=== PATIENT | female | born 1965 | race Caucasian/White ===

== ENCOUNTER 2024-02-20 16:51 | Emergency (ER) | payer OTHER, SELFPAY ==
[2024-02-20 17:08] VITALS: BP 186/98; PULSE 91; RESP 16; TEMP 38.1; O2SAT 99
--- NOTE | 2024-02-20 17:30 | ED.GENADULT ---
HPI - General Adult General Chief complaint: Upper Respiratory Infection Stated complaint: left eye swollen,pain along left side of nose Time Seen by Provider: 02/20/24 17:31 Source: patient, RN notes reviewed and old records reviewed Mode of arrival: ambulatory Limitations: no limitations History of Present Illness HPI narrative: 58-year-old female presents to the [facility] with pain swelling and redness along the left side of nose and under eye. Patient is extremely tender. Reports last week she had a sinus infection used [id number] products which she thought got better. A recently arrived from [place]. Also reports fevers Patient reports she did not take her lisinopril today Onset (ago): day(s) (1) Treatments prior to arrival: NSAID and other (Tylenol) Related Data Home Medications Medication Instructions Recorded Confirmed alprazolam 0.5 mg tablet 0.5 mg PO DAILY 02/20/24 02/20/24 escitalopram oxalate 20 mg tablet 20 mg PO DAILY 02/20/24 02/20/24 (Lexapro) levothyroxine 100 mcg tablet 100 mcg PO DAILY 02/20/24 02/20/24 lisinopril 10 mg tablet 20 mg PO DAILY 02/20/24 02/20/24 Allergies Allergy/AdvReac Type Severity Reaction Status Date / Time butorphanol [From Stadol] Allergy Rash Verified 02/20/24 17:33 Penicillins Allergy Rash Verified 02/20/24 17:33 Review of Systems Review of Systems: All systems reviewed & are unremarkable except as noted in HPI and below Constitutional: Constitutional: Reports no additional constitutional complaints Eyes: Eyes: Reports no additional eye complaints ENT: Reports as per HPI, Reports sinus pain and Reports sinus pressure Cardiovascular: Cardiovascular: Reports no additional cardiovascular complaints, Denies chest pain and Denies dyspnea Respiratory: Respiratory: Reports no additional respiratory complaints, Denies chest congestion, Denies cough and Denies dyspnea Gastrointestinal: Gastrointestinal: Reports no additional gastrointestinal complaints, Denies abdominal pain, Denies nausea and Denies vomiting Musculoskeletal: Musculoskeletal: Reports no additional musculoskeletal complaints Integumentary/Breasts: Skin/Breast: Reports system reviewed and no additional complaints, except as docu Neurologic: Reports system reviewed and no additional complaints, except as documented Psychiatric: Psychiatric: Reports no additional psychiatric complaints Allergic/Immunologic: Allergic/Immunologic: Reports no additional allergic/immunologic complaints PMFSH Past Medical History Medical History (Updated 02/20/24 @ 18:07 by Ashwini Alan APRN) Anxiety History of high blood pressure Thyroid disease Comments At the time of my signature, I reviewed and agree with the nursing past medical, surgical, social, and family history. There is no relevant family history pertinent to the patient complaint. Exam Const: General: cooperative, healthy appearing, comfortable, no acute distress, well developed, alert and well nourished Nutritional Appearance: well nourished Orientation/consciousness: patient oriented x3 Limitations: no limitations HENMT: Head: normal to inspection Ears: hearing grossly normal bilaterally, external ears normal, TM's normal bilaterally, EAC's normal, mastoids normal and no periauricular adenopathy Face/Nose/Sinus: Normal external nose present, Normal nares present, No nasal discharge present, Abnormal mucous membranes and turbinates present boggy on the left and erythematous on the left, normal facial exam, face symmetric, sinus tenderness (Left) and Facial tenderness on exam of face and sinuses (Left) Face and sinus: normal facial exam, face symmetric, no abrasions, no ecchymosis, erythema on the left and sinus tenderness maxillary Mouth: Yes Normal oral and palatal mucosa present, Yes lip normal and Yes tongue normal Throat: posterior oropharynx normal, uvula midline and no uvular edema Eyes: General: appearance normal, both eyes and all relate
== END 2024-02-20 17:50 | disposition home or self-care (01) ==
PROVIDERS: Emergency Provider Nurse Practitioner
DX: J01.40 Acute pansinusitis, unspecified (principal); F41.9 Anxiety disorder, unspecified; I10 Essential (primary) hypertension; E03.9 Hypothyroidism, unspecified; F32.9 Major depressive disorder, single episode, unspecified
CPT/HCPCS: 99203; G0463

== ENCOUNTER 2024-02-22 11:43 | Inpatient (IN) | payer OTHER, SELFPAY ==
--- NOTE | ~2024-02-22 | CT_ITS ---
EXAMINATION: CT facial bones w con DATE: 02/22/2024 12:11 INDICATION: Left facial pain and swelling. TECHNIQUE: Computed tomography (CT) of the facial bones and maxillofacial region was performed with 7 5 mL Omnipaque 350 intravenous contrast. Automated exposure control and iterative reconstruction tech [employer] were employed. The dose-length product was 292.32 mGy-cm. COMPARISON: None. FINDINGS: There is left periorbital soft tissue swelling. The orbits are normal. There are no patholo gically enlarged lymph nodes. There is mucosal thickening in the paranasal sinuses. There is moderate cervical spondylosis. IMPRESSION: 1. Left periorbital soft tissue swelling. Normal orbits. Reviewed, dictated and finalized at location A.
[2024-02-22 11:45] VITALS: BP 155/75; PULSE 88; RESP 16; TEMP 36.5; O2SAT 100
[2024-02-22 12:05] LABS: Basophils Percent Auto 0.4 % (0.2-1.2); Eosinophils Absolute Auto 0.1 K/mm3 (0-0.3); Eosinophils Percent Auto 1.1 % (0-4.4); Hematocrit 39.3 % (37.0-47.0); Immature Granulocyte Absolute 0.04 K/mm3 (0.00-0.031); Immature Granulocyte Percent A 0.4 % (0-0.5); Lymphocytes Absolute Auto 1.71 K/mm3 (0.9-3.2); Lymphocytes Percent Auto 18.6 % (18.3-44.2); Mean Corpuscular HGB Conc 33.1 g/dl (32-36); Mean Corpuscular Hemoglobin 31.5 pg (26-34); Mean Corpuscular Volume 95.2 fl (80-100); Mean Platelet Volume 9.6 fl (7.4-10.4); Monocytes Percent Auto 10.9 % (2.6-8.5); Neutrophils Absolute Auto 6.3 K/mm3 (1.3-6.7); Neutrophils Percent Auto 68.6 % (45.5-73.1); Platelet Count Result 333 k/mm3 (150-375); Red Blood Count 4.13 M/mm3 (4.2-5.4); Red Cell Distribution Width 12.8 % (11.5-14.5); White Blood Count 9.2 K/mm3 (4.5-10.0)
[2024-02-22 12:16] LABS: Lactic Acid Reflex 0.9 mmol/L (0.7-2.0)
[2024-02-22 12:21] LABS: Alanine Aminotransferase 67 U/L (6-35); Albumin Level 4.2 g/dL (3.5-5.1); Alkaline Phosphatase 114 U/L (38-126); Anion Gap 6 mmol/L (4-12); Aspartate Amino Transferase 81 U/L (14-36); Bilirubin,Total 1.3 mg/dL (0.2-1.3); Blood Urea Nitrogen 15 mg/dL (7-17); Calcium 9.2 mg/dL (8.4-10.2); Carbon Dioxide 26 mmol/L (22-30); Chloride 110 mmol/L (98-107); Estimated CRCL calculation 66 ml/min; Estimated Glomerular Filt Rate > 60; Glucose 91 mg/dL (65-110); Potassium 3.8 mmol/L (3.4-5.0); Sodium 142 mmol/L (137-145)
[2024-02-22 13:23] LABS: Erythrocyte Sedimentation Rate 75 mm/hr (0-20)
--- NOTE | 2024-02-22 14:35 | ED.EYEPROB ---
HPI - Eye Problem General Chief complaint: Eye Problems <HANS Kern Last Filed: 02/22/24 19:26> Stated complaint: facial problems <HANS Kern Last Filed: 02/22/24 19:26> Time Seen by Provider: 02/22/24 14:35 <HANS Kern Last Filed: 02/22/24 19:26> Focused HPI: Patient is a 58 y/o female who presents to the ED with c/o L eye pain and swelling. Patient reports she woke up Monday night with some pain in her medial L eye. Thought she slept on her glasses wrong. She has since developed increasing pressure/pain in her L periorbital region and behind her left eye. Was seen at an on Monday, was febrile at that time, started on Doxycycline. Denies improvement since. She then woke up this morning with her left eye swollen shut which prompted her to come to the ED. Denies vision changes, vision loss, blurry vision. Does report some pain with eye movement. GENERAL: Well-appearing, well-nourished, and in no acute distress. HEAD: Normocephalic, atraumatic. EYES: L eye conjunctiva is clear. Mild serous drainage. PERRL/EOMI. Some discomfort with L eye movement. Diffuse swelling to left eye lids, worse in upper eyelid. Erythema, swelling, mild induration in L periorbital region extending to lower maxillary region. CHEST: Clear to auscultation. ?No respiratory distress. HEART: Regular rate and rhythm.? NEURO: ?Alert and oriented x3. Patient screened in triage and initial orders placed.? ?Additional care and disposition to be based upon?diagnostic testing and treatment. <HANS Kern Last Filed: 02/22/24 19:26> Source: patient <HANS Kern Filed: 02/22/24 19:26> Mode of arrival: ambulatory <HANS Kern Filed: 02/22/24 19:26> Limitations: no limitations <HANS Kern Filed: 02/22/24 19:26> History of Present Illness HPI Narrative: As above with the following addition: patient states the pain started on the lateral left aspect of the bridge nose on Monday. Denies pain with ocular movements on my exam. <Jenny Reed MD - Last Filed: 02/24/24 10:14> Related Data Home medications: Home Medications Medication Instructions Recorded Confirmed escitalopram oxalate 20 mg tablet 20 mg PO DAILY 02/20/24 02/22/24 (Lexapro) levothyroxine 100 mcg tablet 100 mcg PO DAILY 02/20/24 02/22/24 lisinopril 10 mg tablet 10 mg PO DAILY 02/20/24 02/22/24 <HANS Kern Last Filed: 02/22/24 19:26> Allergies/adverse reactions: Allergies Allergy/AdvReac Type Severity Reaction Status Date / Time butorphanol [From Stadol] Allergy Rash Verified 02/22/24 18:50 Penicillins Allergy Rash Verified 02/22/24 18:50 <Priti Walls PA-C - Last Filed: 02/22/24 19:26> [facility] Past Medical History Medical History: Medical History Anxiety Depression HTN (hypertension) Hypothyroidism Meningitis Post-operative nausea and vomiting TIA (transient ischemic attack) <HANS Kern Last Filed: 02/22/24 19:26> Surgical History Surgical History: Surgical History History of History of cholecystectomy History of hysterectomy History of umbilical hernia repair <HANS Kern Last Filed: 02/22/24 19:26> Social History Social History: Social History Smoking status: Never smoker Second hand tobacco smoke exposure: Yes Alcohol intake: never Substance use: never Do You Feel Safe in your Home?: Yes Lack of Transportation: No Lack of Food: Never True Current Housing: I Have Housing Concerned About Future Housing: No Difficulty Paying Gas/Electric Bills: No Difficulty Paying for Meds: No 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
[2024-02-22] MEDS: traMADol HCL (*CRX) 25 MG TABLET PO (15:27)
[2024-02-22] MEDS: FLUORESCEIN SOD 1 MG/STRIP EACH EYE (15:27)
[2024-02-22] MEDS: cefTRIAXone 2 GM/NS 100 ML 2 GM/100 ML BAG IVPB (15:29)
[2024-02-22 16:00] VITALS: BP 149/94; PULSE 78; RESP 16; TEMP 36.8; O2SAT 100
[2024-02-22] MEDS: VANCOMYCIN 1,250 MG/NS 250 ML 1,250 MG/250 ML BAG 166.67 MG IVPB (16:17)
--- NOTE | 2024-02-22 16:42 | PC.NURSE ---
vanco stopped due to pt complaining sudden onset of severe itching on head, Redness noted to scalp and posterior neck. ERP notified
[2024-02-22] MEDS: diphenhydrAMINE HCl INJ 50 MG/ML VIAL (16:54)
[2024-02-22 17:00] VITALS: BP 158/94; PULSE 76; RESP 16; TEMP 36.8; O2SAT 100
[2024-02-22] MEDS: ACETAMINOPHEN 500 MG TABLET 1000 MG PO (17:51)
[2024-02-22] MEDS: predniSONE 20 MG TABLET 40 MG PO (17:51)
[2024-02-22 17:58] VITALS: BP 142/80; PULSE 76; RESP 16; TEMP 36.8; O2SAT 100
--- NOTE | 2024-02-22 18:16 | ADMGEN ---
This patient, Marlin Cowan, was admitted to Medical Room 246-. Patient/family oriented to hospital policies and general routines including ID bracelet, bed and alarms, visiting hours, pain management, procedures, bathroom and other care routines, personal items, smoking policy, room service/diet, and visiting hours. Information on how to activate the Rapid Response Team has been discussed. Patient/Family are encouraged to report perceived risks to care and to ask questions if they do not understand what they are told or what they should do.
[2024-02-22 18:18] VITALS: BMI 27.2
[2024-02-22] MEDS: KETOROLAC 30 MG/ML VIAL (*BKC) IV PUSH (19:16)
[2024-02-22 19:28] VITALS: BP 128/80; PULSE 79; RESP 17; TEMP 36.6; O2SAT 99; BMI 28.5
[2024-02-22 19:29] VITALS: BP 128/80; PULSE 79; RESP 17; TEMP 36.6; O2SAT 99
--- NOTE | 2024-02-22 19:46 | PM.IMHP ---
H&P: HPI History of Present Illness Date/Time: 02/22/24 23:00 Chief Complaint: L Eye Pain and Swelling Narrative: 58 y/o F presents here with left eye pain and swelling with PMH of anxiety/depression, TIA, HTN, and hypothyroidism. Patient presents here from home for further evaluation of left eye pain and swelling. She reports waking up Monday (02/18) night due to pain to the left upper part of her nasal bridge just lateral to her eye that she describes as achy. Initially attributed discomfort to sleeping with her glasses on. Due to worsening pain/pressure to her nasal bridge, she went to a local urgent care on Monday (02/19). Febrile (100.6F) upon presentation there and started on Doxycycline 100 mg BID x10 days. Patient reports little improvement with abx initiation. Seeking further treatment/evaluation today due to waking this morning with her eyelid swelling shut and pain was radiating to cheek, above eye brow and causing pressure to general area. No pain with ocular movement. Denying diplopia, blurred vision, vision loss, or any other changes in vision. Has continued to have subjective fevers, not able to take temp (currently traveling here). No open wounds, acne blemish, or trauma to that region prior to onset of symptomns. No prior hx of skin infections. Had 2 episodes of acute sinusitis in Nov and then had an abscessed tooth November (took 1 month to resolve, feel improved). Initial VS at presentation: 97.7? F, HR 88, RR 16, 155/75, and 100% on RA. ED workup showed: No leukocytosis, no anemia, ESR 75, no significant electrolyte derangements, creatinine 0.8 a and GFR >60, lactic 0.9, modest elevation in LFTs, CRP 6.0. CT face showed left periorbital soft tissue swelling and normal orbits. Review of Systems Review of Systems: All systems reviewed & are unremarkable except as noted in HPI and below PMFSH Past Medical History Medical History Anxiety Depression HTN (hypertension) Hypothyroidism Meningitis Post-operative nausea and vomiting TIA (transient ischemic attack) Surgical History Surgical History History of History of cholecystectomy History of hysterectomy History of umbilical hernia repair Social History Social History Smoking status: Never smoker Second hand tobacco smoke exposure: Yes Alcohol intake: never Substance use: never Do You Feel Safe in your Home?: Yes Lack of Transportation: No Lack of Food: Never True Current Housing: I Have Housing Concerned About Future Housing: No Difficulty Paying Gas/Electric Bills: No Difficulty Paying for Meds: No 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ation: High School Diploma/GED Difficulty w/ Childcare or Family Care: No Spiritual care concerns: No Meds Home Medications and Allergies Home Medications Medication Instructions Recorded Confirmed Type doxycycline monohydrate 100 mg 100 mg PO BID #20 tabs 02/20/24 02/22/24 Rx tablet escitalopram oxalate 20 mg tablet 20 mg PO DAILY 02/20/24 02/22/24 History (Lexapro) levothyroxine 100 mcg tablet 100 mcg PO DAILY 02/20/24 02/22/24 History lisinopril 10 mg tablet 10 mg PO DAILY 02/20/24 02/22/24 History Allergies Allergy/AdvReac Type Severity Reaction Status Date / Time butorphanol [From Stadol] Allergy Rash Verified 02/22/24 18:50 Penicillins Allergy Rash Verified 02/22/24 18:50 Vital Signs Vital Signs - 24 hr 02/22/24 11:45 02/22/24 16:00 02/22/24 17:00 Temperature 97.7 F 98.3 F 98.3 F Pulse Rate 88 78 76 Respiratory Rate 16 16 16 Blood Pressure 155/75 H 149/94 H 158/94 H Pulse Oximetry 100 100 100 02/22/24 17:58 02/22/24 19:28 02/22/24 19:29 Temperature 98.3 F 97.9 F 97.9 F Pulse Rate 76 79 79 Respiratory Rate 16 17 17 Blood Pressure 142/80 H 128/80 128/80 Pulse Oximetry 100 99 99
[2024-02-22] MEDS: ACETAMINOPHEN 325 MG TABLET 650 MG PO (22:09)
[2024-02-22] MEDS: diphenhydrAMINE HCl INJ 50 MG/ML VIAL 25 MG IV PUSH (22:09)
[2024-02-22] MEDS: MELATONIN 5 MG TABLET PO (23:46)
[2024-02-23 05:00] LABS: Basophils Percent Auto 0.3 % (0.2-1.2); Hematocrit 39.1 % (37.0-47.0); Hemoglobin 12.6 g/dL (12.0-15.0); Immature Granulocyte Absolute 0.05 K/mm3 (0.00-0.031); Immature Granulocyte Percent A 0.5 % (0-0.5); Lymphocytes Absolute Auto 1.23 K/mm3 (0.9-3.2); Lymphocytes Percent Auto 12.9 % (18.3-44.2); Mean Corpuscular HGB Conc 32.2 g/dl (32-36); Mean Corpuscular Hemoglobin 30.9 pg (26-34); Mean Corpuscular Volume 95.8 fl (80-100); Monocytes Absolute Auto 0.7 K/mm3 (0.1-0.6); Monocytes Percent Auto 6.9 % (2.6-8.5); Neutrophils Absolute Auto 7.6 K/mm3 (1.3-6.7); Neutrophils Percent Auto 79.4 % (45.5-73.1); Platelet Count Result 351 k/mm3 (150-375); Red Blood Count 4.08 M/mm3 (4.2-5.4); Red Cell Distribution Width 12.7 % (11.5-14.5); White Blood Count 9.6 K/mm3 (4.5-10.0)
[2024-02-23 05:14] LABS: Alanine Aminotransferase 72 U/L (6-35); Albumin Level 3.9 g/dL (3.5-5.1); Alkaline Phosphatase 117 U/L (38-126); Anion Gap 6 mmol/L (4-12); Aspartate Amino Transferase 74 U/L (14-36); Bilirubin,Total 0.8 mg/dL (0.2-1.3); Blood Urea Nitrogen 16 mg/dL (7-17); CRP 4.9 mg/dL (<1.0); Calcium 9.4 mg/dL (8.4-10.2); Carbon Dioxide 25 mmol/L (22-30); Chloride 110 mmol/L (98-107); Estimated CRCL calculation 77 ml/min; Estimated Glomerular Filt Rate > 60; Glucose 152 mg/dL (65-110); Potassium 4.5 mmol/L (3.4-5.0); Sodium 141 mmol/L (137-145)
[2024-02-23] MEDS: LEVOTHYROXINE SODIUM 100 MCG TABLET PO (05:15)
[2024-02-23 05:31] VITALS: BP 117/52; PULSE 73; RESP 17; TEMP 36.7; O2SAT 98
[2024-02-23] MEDS: ESCITALOPRAM OXALATE 10 MG TABLET 20 MG PO (09:04)
[2024-02-23] MEDS: diphenhydrAMINE HCl CAP 25 MG CAPSULE PO (09:05)
[2024-02-23] MEDS: lisinopriL 10 MG TABLET PO (09:05)
[2024-02-23] MEDS: VANCOMYCIN 1,250 MG/NS 250 ML 1,250 MG/250 ML BAG 83.33 MG IVPB (09:06)
[2024-02-23] MEDS: ACETAMINOPHEN 325 MG TABLET 650 MG PO ×2 (12:43→21:55)
--- NOTE | 2024-02-23 13:29 | PM.IMPN ---
Progress Note: A&P Assessment and Plan (1) Periorbital cellulitis: Qualifiers: Laterality: left Qualified Code(s): L03.213 - Periorbital cellulitis Code(s): L03.213 - Periorbital cellulitis Status: Acute Assessment and Plan: - CT Face left periorbital soft tissue swelling. Normal orbits. - WBC 9.2, ESR 75, CRP 6 - Started on Vanc and Ceftriaxone on 02/21, however patient had allergic reaction (sudden onset of severe itching to her head and erythema to the scalp and posterior neck). Ceftriaxone given 1 hr prior to reaction and Vanc infusing during reaction. Spoke with pharmacy, plan for premedication prior to vancomycin infusion and slow infusion. Choice of abx treatment dependent on reaction. Benadryl 25 mg IVP PRN ordered. - pain control PRN - 02/22 swelling, pain and redness improved. (2) Transaminitis: Code(s): R74.01 - Elevation of levels of liver transaminase levels Status: Acute Assessment and Plan: - AST 81, ALT 67 - suspect elevation due to hypothyroidism - monitor (3) HTN (hypertension): Code(s): I10 - Essential (primary) hypertension Status: Acute Assessment and Plan: - chronic, currently 128/80 - continue home medications: Lisinopril 10 mg daily - monitor Subjective Date/time seen: 02/23/24 13:29 Interval history: Patient states that her pain and swelling are improved today. She is feeling much better. Going to continue to treat with IV antibiotic therapy. She denies body aches, chills, tear duct drainage, pain with blinking, visual changes rash, itching, chest pain or shortness of breath. Exam Narrative: GENERAL: Comfortable, no acute distress HENMT: moist mucous membranes, left periorbital cellulitis, no tear duct drainage or conjunctivitis noted EYES: EOM intact b/l NECK: no lymphadenopathy RESPIRATORY: clear to auscultation, no increased respiratory effort CARDIO: Regular rate and rhythm GI: soft, nontender, bowel sounds present EXTREMITIES: no rashes, no edema, no redness or tenderness NEURO: PROM intact, answers questions appropriately, A&O x4 Objective Data Vital Signs Vital Signs: Vital Signs - 24 hr 02/22/24 16:00 02/22/24 17:00 02/22/24 17:58 Temperature 98.3 F 98.3 F 98.3 F Pulse Rate 78 76 76 Respiratory Rate 16 16 16 Blood Pressure 149/94 H 158/94 H 142/80 H Pulse Oximetry 100 100 100 Oxygen Delivery 02/22/24 19:28 02/22/24 19:29 02/22/24 20:00 Temperature 97.9 F 97.9 F Pulse Rate 79 79 Respiratory Rate 17 17 Blood Pressure 128/80 128/80 Pulse Oximetry 99 99 Oxygen Delivery Room Air 02/23/24 05:31 02/23/24 09:05 Temperature 98.0 F Pulse Rate 73 Respiratory Rate 17 Blood Pressure 117/52 L Pulse Oximetry 98 Oxygen Delivery Room Air Intake/Output Intake/Output: Intake & Output 02/20/24 02/21/24 02/22/24 02/23/24 23:59 23:59 23:59 23:59 Intake Total 100 50 Balance 100 50 Meds/Results Medications: Active Medications Generic Name Dose Route Start Last Admin Trade Name Freq PRN Reason Stop Dose Admin Acetaminophen 650 mg 02/22/24 17:34 02/23/24 12:43 Acetaminophen 325 Mg Tablet PO 650 mg Q4H PRN Administration Mild Pain (1-3) or Fever Diphenhydramine HCl 25 mg 02/23/24 09:00 02/23/24 09:05 Diphenhydramine Hcl Cap 25 Mg Capsule PO 25 mg Q18H GRIFFIN Administration Diphenhydramine HCl 25 mg 02/22/24 23:37 Diphenhydramine Hcl Inj 50 Mg/Ml Vial IV PUSH Q4H PRN Allergic Reaction Escitalopram Oxalate 20 mg 02/23/24 09:00 02/23/24 09:04 Escitalopram Oxalate 10 Mg Tablet PO 20 mg DAILY GRIFFIN Administration Vancomycin HCl 1,250 mg in 250 mls @ 83.333 mls/hr 02/23/24 10:00 02/23/24 09:06 Vancomycin 1,250 Mg/Ns 250 Ml IVPB 83.33 mls/hr Q18H GRIFFIN Administration Ceftriaxone Sodium 2 gm in 100 mls @ 200 mls/hr 02/23/24 16:00 Rocephin 2 Gm/Ns 100 Ml IVPB Q24H GRIFFIN
[2024-02-23 15:00] VITALS: BP 142/65; PULSE 80; RESP 18; TEMP 36.9; O2SAT 99
[2024-02-23] MEDS: cefTRIAXone 2 GM/NS 100 ML 2 GM/100 ML BAG IVPB (16:07)
[2024-02-23 21:43] VITALS: BP 156/89; PULSE 66; RESP 18; TEMP 36.1; O2SAT 100
[2024-02-23] MEDS: MELATONIN 5 MG TABLET PO (21:50)
[2024-02-24] MEDS: diphenhydrAMINE HCl CAP 25 MG CAPSULE PO (02:48)
[2024-02-24] MEDS: VANCOMYCIN 1,250 MG/NS 250 ML 1,250 MG/250 ML BAG 83.33 MG IVPB (03:42)
[2024-02-24 04:39] VITALS: BP 138/72; PULSE 67; RESP 18; TEMP 36.7; O2SAT 98
[2024-02-24 05:40] LABS: Hematocrit 36.4 % (37.0-47.0); Hemoglobin 11.8 g/dL (12.0-15.0); Mean Corpuscular HGB Conc 32.4 g/dl (32-36); Mean Corpuscular Hemoglobin 30.8 pg (26-34); Platelet Count Result 336 k/mm3 (150-375); Red Blood Count 3.83 M/mm3 (4.2-5.4); Red Cell Distribution Width 13.1 % (11.5-14.5); White Blood Count 8.9 K/mm3 (4.5-10.0)
[2024-02-24 05:49] LABS: Anion Gap 5 mmol/L (4-12); Blood Urea Nitrogen 14 mg/dL (7-17); Calcium 8.7 mg/dL (8.4-10.2); Carbon Dioxide 26 mmol/L (22-30); Chloride 110 mmol/L (98-107); Estimated CRCL calculation 77 ml/min; Estimated Glomerular Filt Rate > 60; Glucose 93 mg/dL (65-110); Potassium 3.7 mmol/L (3.4-5.0); Sodium 141 mmol/L (137-145)
[2024-02-24] MEDS: LEVOTHYROXINE SODIUM 100 MCG TABLET PO (06:28)
[2024-02-24] MEDS: ESCITALOPRAM OXALATE 10 MG TABLET 20 MG PO (08:11)
[2024-02-24] MEDS: lisinopriL 10 MG TABLET PO (08:11)
--- NOTE | 2024-02-24 09:42 | PC.NURSE ---
Per rosy Smith to give IV Rocephin at 2pm instead of scheduled 4 pm dose, then pt to D/C
--- NOTE | 2024-02-24 11:40 | PM.DS ---
DS: Admitting Diagnosis Discharge Date 02/24/24 Admitting Diagnosis facial cellulitis DS: Discharge Diagnosis Discharge Diagnosis (1) Periorbital cellulitis: Qualifiers: Laterality: left Qualified Code(s): L03.213 - Periorbital cellulitis Code(s): L03.213 - Periorbital cellulitis Status: Acute (2) Transaminitis: Code(s): R74.01 - Elevation of levels of liver transaminase levels Status: Acute (3) HTN (hypertension): Code(s): I10 - Essential (primary) hypertension Status: Acute DS: Summary Hospital Course Hospital Course: 58 y/o F presents here with left eye pain and swelling with PMH of anxiety/depression, TIA, HTN, and hypothyroidism. Patient presents here from home for further evaluation of left eye pain and swelling.? She reports waking up Monday (02/18) night due to pain to the left upper part of her nasal bridge just lateral to her eye that she describes as achy.? Initially attributed discomfort to sleeping with her glasses on.? Due to worsening pain/pressure to her nasal bridge, she went to a local urgent care on Monday (02/19). Febrile (100.6F) upon presentation there and started on Doxycycline 100 mg BID x10 days. Patient reports little improvement with abx initiation. Seeking further treatment/evaluation today due to waking this morning with her eyelid swelling shut and pain was radiating to cheek, above eye brow and causing pressure to general area. No pain with ocular movement. Denying diplopia, blurred vision, vision loss, or any other changes in vision. she had recently treated a abscess to on bottom right side a couple weeks prior. ED workup showed no leukocytosis, no anemia, ESR 75, no significant electrolyte derangements, creatinine 0.8 a and GFR >60, lactic 0.9, modest elevation in LFTs, CRP 6.0.? CT face showed left periorbital soft tissue swelling and normal orbits. Patient was started on IV vancomycin and Rocephin. Patient's symptoms of pain, swelling and redness improved with IV antibiotic therapy. She never developed any discharge out of the eye, conjunctivitis, sore throat, difficulty swallowing or pain inside of the mouth. Plan to decelerate antibiotics to Keflex. Her labs and vital signs are stable and she is medically cleared for discharge this time. Time Spent with Patient Time attestation: Total time spent providing and/or coordinating discharge services: Exam Narrative: GENERAL: Comfortable, no acute distress HENMT: moist mucous membranes, left periorbital cellulitis, no tear duct drainage or conjunctivitis noted EYES: EOM intact b/l NECK: no lymphadenopathy RESPIRATORY: clear to auscultation, no increased respiratory effort CARDIO: Regular rate and rhythm GI: soft, nontender, bowel sounds present EXTREMITIES: no rashes, no edema, no redness or tenderness NEURO: PROM intact, answers questions appropriately, A&O x4 DS: Data Data Completed and Pending Labs on day of discharge: Labs from last 24 hours 02/24/24 05:00 WBC 8.9 RBC 3.83 L Hgb 11.8 L Hct 36.4 L MCV 95.0 MCH 30.8 MCHC 32.4 RDW 13.1 Plt Count 336 MPV 10.0 Sodium 141 Potassium 3.7 Chloride 110 H Carbon Dioxide 26 Anion Gap 5 BUN 14 Creatinine 0.70 Estim Creat Clear Calc 77 Estimated GFR > 60 Glucose 93 Calcium 8.7 Discharge Plan Discharge Consulting providers: Priti Walls Discharging Clinician: Cristiane Goodman Patient Disposition: Home, Self-Care Activity: no preference Diet: regular Discharge Instructions: Medications: Keflex 500 mg 3 times a day; start tomorrow. Discharge disposition: Take medications as prescribed Monitor blood pressures Avoid social areas, you wear a mask when in social settings Encouraged to continue with yearly vaccinations Return to the emergency department if he developed sudden shortness of breath, chest pain, nausea, vomiting, upset stomach or intractable diarrhea Return to the emerge
[2024-02-24 13:37] VITALS: BP 181/82; PULSE 82; RESP 16; TEMP 36.8; O2SAT 99
[2024-02-24] MEDS: cefTRIAXone 2 GM/NS 100 ML 2 GM/100 ML BAG IVPB (14:00)
== END 2024-02-24 14:40 | disposition home or self-care (01) | DRG 603 ==
LOC: ANHED 16:30 → ANH2MED 17:57
PROVIDERS: Internal Medicine Critical Care Medicine; Physician Assistant; Student in an Organized Health Care Education/Training Program; Admitting Provider Internal Medicine; Emergency Provider Student in an Organized Health Care Education/Training Program; Visit Provider Internal Medicine
DX: L03.213 Periorbital cellulitis (principal); I10 Essential (primary) hypertension; E03.9 Hypothyroidism, unspecified; R74.01 Elevation of levels of liver transaminase levels; T36.95XA Adverse effect of unspecified systemic antibiotic, initial encounter; F41.9 Anxiety disorder, unspecified; F32.A Depression, unspecified; Z86.73 Personal history of transient ischemic attack (TIA), and cerebral infarction without residual deficits
CPT/HCPCS: 36415; 70487; 80048; 80053; 83605; 85025; 85027; 85652; 86140; 96365; 96372; 96375; 96376; 99285; A9270; G0378; J0696; J1200; J1885; J3370; J7512; Q9967